=== PATIENT | female | born 1975 | race Two or more races ===

== ENCOUNTER 2016-09-19 09:27 | Emergency (ER) | payer BC ==
--- NOTE | 2016-09-19 10:57 | ER Document Report ---
ED Headache - General Mode of Arrival: Ambulatory Information source: Patient TRAVEL OUTSIDE OF THE [place] IN LAST 30 DAYS: No - HPI Patient complains to provider of: Headache, "Migraine" Patient reports: Hx chronic headaches Onset: Other - x5-6 days Timing: Worse Quality of pain: Achy Associated symptoms: None Similar symptoms previously: Yes Recently seen / treated by doctor: No <LIAN BUTTS - Last Filed: 09/19/16 10:59> <VAISHNAVI LARA - Last Filed: 09/19/16 12:54> - General Chief Complaint: Headache Stated Complaint: HEAD PAIN Notes: Patient is a 41-year-old female that presents to the emergency department today with complaints of a headache. Patient states that she has had a headache for the last 5 or 6 days, 3 days ago the patient fell face first after losing her balance and patient states her headache was much worse after this fall. Patient states she gets migraine headaches "every once in a blue arenas" however this headache is worse than her normal migraines. Patient states the pain is at the back of her head. Patient states that noises exacerbate her headache. Patient states lights do not affect her headache. Patient states she moved here from [place] one year ago and has no local PCP. (LIAN BUTTS) - Related Data Allergies/Adverse Reactions: diphenhydramine [From Benadryl] Adverse Reaction (Verified 09/19/16 11:09) RLS hydrocodone Adverse Reaction (Verified 09/19/16 11:09) VOMITING Home Medications: Current Home Medications Estradiol [Estradiol] 2 mg PO DAILY 09/19/16 [History] Furosemide [Furosemide] 20 mg PO DAILY 09/19/16 [History] Losartan Potassium [Cozaar 25 mg Tablet] 25 mg PO DAILY 09/19/16 [History] Past Medical History - General Information source: Patient - Social History Smoking Status: Never Smoker Cigarette use (# per day): No Frequency of alcohol use: Social Drug Abuse: None Lives with: Family Family History: Reviewed & Not Pertinent Patient has suicidal ideation: No Patient has homicidal ideation: No - Past Medical History Cardiac Medical History: Reports: Hx Hypertension Neurological Medical History: Reports: Hx Migraine - ? Renal/ Medical History: Reports: Other - Polycystic Kidney Disease Surgical Hx: Negative <LIAN BUTTS - Last Filed: 09/19/16 10:59> Review of Systems - Review of Systems Constitutional: No symptoms reported EENT: No symptoms reported Cardiovascular: No symptoms reported Respiratory: No symptoms reported Gastrointestinal: No symptoms reported Genitourinary: No symptoms reported Female Genitourinary: No symptoms reported Musculoskeletal: No symptoms reported Skin: No symptoms reported Hematologic/Lymphatic: No symptoms reported Neurological/Psychological: See HPI, Headaches -: Yes All other systems reviewed and negative <BENJAMÍNLIAN - Last Filed: 09/19/16 10:59> Physical Exam - General General appearance: Appears well, Alert In distress: None - HEENT Head: Normocephalic, Atraumatic Eyes: Normal Conjunctiva: Normal Extraocular movements intact: Yes Pupils: PERRL Neck: Other - Posterior cervical muscles are tender with palpation bilaterally, reproducible head pain. Neck is supple, chin to chest without difficulty. - Respiratory Respiratory status: No respiratory distress Chest status: Nontender Breath sounds: Normal - Cardiovascular Rhythm: Regular Heart sounds: Normal auscultation Murmur: No - Abdominal Inspection: Normal Distension: No distension - Extremities General upper extremity: Normal inspection, Normal ROM. No: Edema General lower extremity: Normal inspection, Normal ROM. No: Edema - Neurological Neuro grossly intact: Yes Cognition: Normal Orientation: AAOx4 Speech: Normal - Psychological Associated symptoms: Normal affect, Normal mood - Skin Skin Temperature: Warm Skin Moisture: Dry Skin Color: Normal <BENJAMÍNYOANLIAN - Last Filed: 09/19/16 10:59> Course <BENJAMÍNLIAN - Last Filed: 09/19/16 10:59> - Laboratory Result Diagrams: 09/19/16 11:10 09/19/16 11:10 <VAISHNAVI LARA - Last Filed: 09/19/16 12:54> - Re-evaluation Re-evalutation: 09/19/16 11:43 The patient elected not to take Percocet for pain, and requested Toradol instead. This was ordered after her normal renal function was confirmed by the lab work. 09/19/16 12:53 The headache is much improved after medication. At discharge, the patient is requesting a prescription for Zofran. (VAISHNAVI LARA) - Vital Signs Vital signs: Temp Pulse Resp BP Pulse Ox 97.8 F 65 18 143/84 H 100 09/19/16 09:34 09/19/16 09:34 09/19/16 10:49 09/19/16 09:34 09/19/16 09:34 - Laboratory Laboratory results interpreted by me: 09/19/16 09/19/16 11:10 11:10 Plt Count 133 L Total Bilirubin 1.4 H Discharge <LIAN BUTTS - Last Filed: 09/19/16 10:59> <VAISHNAVI LARA - Last Filed: 09/19/16 12:54> - Discharge Clinical Impression: Tension type headache Qualifiers: Headache chronicity pattern: acute headache Intractability: not intractable Qualified Code(s): G44.209 - Tension-type headache, unspecified, not intractable Condition: Stable Disposition: HOME, SELF-CARE Additional Instructions: Tension Headache: Your problem has been diagnosed as muscle tension headache. This very common type of headache occurs because of tightness in the muscles of the head and neck. The headache may last hours or days. The treatment of uncomplicated tension headaches is rest and pain medication. Often, the newer antiinflammatory pain medications are prescribed, as these also decrease the irritability of the painful tissues. Muscle relaxers , cold packs, or warm packs are sometimes helpful. Anti-anxiety medication or narcotics are sometimes needed temporarily, but are best avoided in the long run. Your doctor has evaluated your headache problem, and finds no evidence of a serious health problem as a cause for the headache. If your headache becomes more severe, or if new symptoms develop (such as fever, stiff neck, vomiting, or decreasing alertness) you should be re-examined by the physician. YOUR HEADACHE IS COMING FROM POSTERIOR NECK MUSCLE TENSION. TAKE THE MEDICATION PRESCRIBED. TAKE 2 ALEVE EVERY 12 HOURS FOR A FEW DAYS. REST. TRY ICE-PACKS OR MOIST HEAT. FOLLOW UP WITH LOCAL MEDICAL DOCTOR IF NOT IMPROVING. RETURN TO THE EMERGENCY ROOM IF ANY NEW OR WORSENING SYMPTOMS. Prescriptions: Butalb/Acetaminophen/Caffeine [Fioricet (50-325-40 mg) Tablet] 1 - 2 tab PO Q4H #20 tab Cyclobenzaprine HCl [Flexeril 5 mg Tablet] 5 mg PO TID PRN #15 tablet PRN Reason: Ondansetron HCl [Zofran 4 mg Tablet] 1 - 2 tab PO Q4H PRN #10 tablet PRN Reason: Scribe Attestation: 09/19/16 11:48 I personally performed the services described in the documentation, reviewed and edited the documentation which was dictated to the scribe in my presence, and it accurately records my words and actions. (VAISHNAVI LARA) Scribe Documentation - Scribe Written by Nathanibe:: Sweta Villanueva, 09/19/2016 [id number] acting as scribe for :: Mario <LIAN BUTTS - Last Filed: 09/19/16 10:59>
[2016-09-19] MEDS ORDERED: OXYCODONE-ACETAMINOPHEN 5-325 MG TABLET PO ONE (10:58)
[2016-09-19] MEDS ORDERED: CYCLOBENZAPRINE HCL 10 MG TABLET PO ONE (10:58)
[2016-09-19] MEDS ORDERED: ONDANSETRON 4 MG TAB.RAPDIS PO ONE (11:16)
[2016-09-19 11:27] LABS: ABSOLUTE EOSINOPHILS # (AUTO) 0.1 10^3/uL (0.0-0.6); ABSOLUTE LYMPHOCYTES (AUTO) 1.4 10^3/uL (0.5-4.7); ABSOLUTE MONOCYTES (AUTO) 0.3 10^3/uL (0.1-1.4); ABSOLUTE NEUT (AUTO) 3.1 10^3/uL (1.7-8.2); BASOPHILS % (AUTO) 0.2 % (0-2); EOSINOPHILS % (AUTO) 1.6 % (0-6); HEMATOCRIT 39.5 % (36.0-47.0); HEMOGLOBIN 13.6 g/dL (12.0-15.5); HGB HCT DIFFERENCE 1.3; LYMPHOCYTES % (AUTO) 28.3 % (13-45); MEAN CORPUSCULAR HEMOGLOBIN 30.6 pg (27.0-33.4); MEAN CORPUSCULAR HGB CONC 34.5 g/dL (32.0-36.0); MEAN CORPUSCULAR VOLUME 89 fl (80-97); MONOCYTES % (AUTO) 6.2 % (3-13); RED BLOOD COUNT 4.45 10^6/uL (3.72-5.28); RED CELL DISTRIBUTION WIDTH 12.8 % (11.5-14.0); SEGMENTED NEUTROPHILS % (AUTO) 63.7 % (42-78); WHITE BLOOD COUNT 4.9 10^3/uL (4.0-10.5)
[2016-09-19 11:40] LABS: ALANINE AMINOTRANSFERASE 35 U/L (9-52); ALBUMIN 4.1 g/dL (3.5-5.0); ALKALINE PHOSPHATASE 82 U/L (38-126); ANION GAP 13 (5-19); ASPARTATE AMINO TRANSFERASE 29 U/L (14-36); BILIRUBIN,DIRECT 0.3 mg/dL (0.0-0.4); BILIRUBIN,TOTAL 1.4 mg/dL (0.2-1.3); BLOOD UREA NITROGEN 14 mg/dL (7-20); CALCIUM 8.9 mg/dL (8.4-10.2); CARBON DIOXIDE 25 mmol/L (22-30); CHLORIDE 105 mmol/L (98-107); CREATININE RESULT 0.68 mg/dL (0.52-1.25); GLUCOSE 95 mg/dL (75-110); POTASSIUM 3.7 mmol/L (3.6-5.0); TOTAL PROTEIN 7.5 g/dL (6.3-8.2)
[2016-09-19] MEDS ORDERED: KETOROLAC TROMETHAMINE 60 MG/2 ML SDV IM ONE (11:43)
[2016-09-19 13:00] VITALS: BP 126/82
== END 2016-09-19 13:00 | disposition home or self-care (01) ==
LOC: ER 09:27
DX: G44.209 Tension-type headache, unspecified, not intractable (principal); Z91.81 History of falling; I10 Essential (primary) hypertension
CPT/HCPCS: 99284; 96372; 36415; 85025; 80053; J1885; S0119